=== PATIENT | male | born 1960 | race Caucasian/White ===

== ENCOUNTER 2016-12-01 20:06 | Inpatient (IN) | payer BC ==
--- NOTE | 2016-12-01 21:33 | C.PDOC ---
History Of Present Illness 56 year old male who presents to the ER with a complaint of rectal bleeding since yesterday and a headache. Patient was seen at [facility] yesterday where they discharged him home with instructions to follow up with his PMD. Patient saw his PMD Dr. Mendoza, who sent him to the ER for admission. Patient had a colonoscopy done 5 years ago with removal of 2 polyps. Patient denies fever, chills, or vomiting. Chief Complaint (Nursing): Abdominal Pain History Per: Patient History/Exam Limitations: no limitations Onset/Duration Of Symptoms: Days Current Symptoms Are (Timing): Still Present Radiation Of Pain To:: None Quality Of Discomfort: Unable To Describe Associated Symptoms: Other (Headache, Rectal bleed). denies: Fever, Chills, Vomiting Exacerbating Factors: None Alleviating Factors: None Recent travel outside of the [place]: No Past Medical History Reviewed: Historical Data, Nursing Documentation, Vital Signs Vital Signs: Last Vital Signs Temp 98.3 F 12/01/16 23:45 Pulse 61 12/01/16 23:45 Resp 18 12/01/16 23:45 BP 132/73 12/01/16 23:45 Pulse Ox 99 12/01/16 23:45 - Medical History PMH: Atrial Fibrillation, Colonic Polyps Surgical History: No Surg Hx Family History: States: Unknown Family Hx - Social History Hx Alcohol Use: No Hx Substance Use: No - Immunization History Hx Tetanus Toxoid Vaccination: No Hx Influenza Vaccination: No Hx Pneumococcal Vaccination: No Review Of Systems Constitutional: Negative for: Fever, Chills Gastrointestinal: Positive for: Other (Rectal bleeding). Negative for: Vomiting Neurological: Positive for: Headache Physical Exam - Physical Exam Appears: Non-toxic, No Acute Distress Skin: Normal Color, Warm, Dry Head: Atraumatic, Normacephalic Oral Mucosa: Moist Chest: Symmetrical Cardiovascular: Rhythm Regular Respiratory: Normal Breath Sounds, No Rales, No Rhonchi, No Wheezing Gastrointestinal/Abdominal: Soft, No Tenderness Neurological/Psych: Oriented x3, Normal Speech, Normal Cognition, Normal Motor, Normal Sensation ED Course And Treatment - Laboratory Results Result Diagrams: 12/01/16 21:44 12/01/16 21:44 O2 Sat by Pulse Oximetry: 99 (Room air) Pulse Ox Interpretation: Normal Progress Note: Blood work and urinalysis ordered. Disposition - Disposition Disposition Time: 22:30 Condition: GOOD - Clinical Impression Clinical Impression: Rectal bleeding - Scribe Statement The provider has reviewed the documentation as recorded by the Scribe Osmar Green All medical record entries made by the Elizabethibe were at my direction and personally dictated by me. I have reviewed the chart and agree that the record accurately reflects my personal performance of the history, physical exam, medical decision making, and the department course for this patient. I have also personally directed, reviewed, and agree with the discharge instructions and disposition.
[2016-12-01 21:48] LABS: BASO % 0.4 % (0.0-2.0); EOS # 0.2 K/uL (0.0-0.7); EOS % 1.9 % (0.0-4.0); HEMATOCRIT 45.9 % (35.0-51.0); LYMPH # 3.5 K/uL (1.0-4.3); LYMPH % 30.8 % (20.0-40.0); MEAN CELL VOLUME 91.4 fL (80.0-94.0); MEAN CORPUSCULAR HEMOGLOBIN 31.3 pg (27.0-31.0); MEAN CORPUSCULAR HGB CONC 34.3 g/dL (33.0-37.0); MEAN PLATELET VOLUME 8.6 fL (7.2-11.7); MONO # 0.9 K/uL (0.0-0.8); MONO % 7.7 % (0.0-10.0); RED CELL DISTRIBUTION WIDTH 13.2 % (11.5-14.5); WHITE BLOOD COUNT 11.3 K/uL (4.8-10.8)
[2016-12-01 21:57] LABS: CHLORIDE 96 mmol/L (98-107); POTASSIUM 3.2 mmol/L (3.6-5.2); SODIUM 136 mmol/L (132-148)
[2016-12-01 22:00] LABS: ALB/GLOB RATIO 1.2 (1.0-2.1); ALKALINE PHOSPHATASE 69 U/L (38-126); ALT/SGPT 48 U/L (21-72); AST/SGOT 26 U/L (17-59); BILIRUBIN,TOTAL 0.9 mg/dL (0.2-1.3); BLOOD UREA NITROGEN 12 mg/dL (9-20); CALCIUM 9.5 mg/dl (8.6-10.4); CARBON DIOXIDE 29 mmol/L (22-30); GFR AFRICAN-AMERICAN > 60; GLUCOSE,RANDOM 89 mg/dL (75-110); RBC URINE 1 /hpf (0-3); TOTAL PROTEIN 8.3 g/dL (6.3-8.3); URINE BILIRUBIN NEGATIVE (NEGATIVE); URINE BLOOD NEGATIVE (NEGATIVE); URINE COLOR Yellow (YELLOW); URINE GLUCOSE (UA) NORMAL (Normal); URINE KETONE NEGATIVE (NEGATIVE); URINE LEUKOCYTE ESTERASE NEG Leu/uL (Negative); URINE PROTEIN NEGATIVE (NEGATIVE); URINE UROBILINOGEN NORMAL mg/dL (0.2-1.0); WBC URINE < 1 /hpf (0-5)
[2016-12-01 22:04] LABS: INR 1.1
--- NOTE | 2016-12-01 22:25 | CT ---
EXAM: CT Head Without Intravenous Contrast CLINICAL HISTORY: 56 years old, male; Condition or disease; Headache; Tension; Additional info: R/O ich TECHNIQUE: Axial computed tomography images of the head/brain without intravenous contrast. All CT scans at this facility use one or more dose reduction techniques, viz.: automated exposure control; ma/kV adjustment per patient size (including targeted exams where dose is matched to indication; i.e. head); or iterative reconstruction technique. COMPARISON: No relevant prior studies available. FINDINGS: Brain: No acute intracranial hemorrhage. No significant white matter disease. No edema. Ventricles: No significant ventriculomegaly. Bones: No acute displaced fracture. Sinuses: Unremarkable as visualized. No acute sinusitis. Mastoid air cells: Unremarkable as visualized. No mastoid effusion. IMPRESSION: No acute intracranial hemorrhage, or suspicious mass effect.
[2016-12-02] MEDS ORDERED: Potassium Chloride 20 mEq ER Tab PO STA (00:20)
[2016-12-02] MEDS ORDERED: Potassium Chloride 20 mEq ER Tab PO ONE (00:23)
[2016-12-02 00:47] VITALS: RESP 20
[2016-12-02 08:08] LABS: BASO % 0.6 % (0.0-2.0); EOS # 0.2 K/uL (0.0-0.7); EOS % 2.5 % (0.0-4.0); LYMPH # 2.1 K/uL (1.0-4.3); LYMPH % 29.1 % (20.0-40.0); MEAN CELL VOLUME 90.6 fL (80.0-94.0); MEAN CORPUSCULAR HEMOGLOBIN 31.4 pg (27.0-31.0); MEAN CORPUSCULAR HGB CONC 34.6 g/dL (33.0-37.0); MEAN PLATELET VOLUME 8.4 fL (7.2-11.7); MONO # 0.6 K/uL (0.0-0.8); MONO % 7.8 % (0.0-10.0); RED CELL DISTRIBUTION WIDTH 12.7 % (11.5-14.5); WHITE BLOOD COUNT 7.3 K/uL (4.8-10.8)
[2016-12-02 08:16] LABS: CHLORIDE 102 mmol/L (98-107); INR 1.1
[2016-12-02 08:17] LABS: POTASSIUM 3.9 mmol/L (3.6-5.2); SODIUM 135 mmol/L (132-148)
[2016-12-02 08:19] LABS: GFR AFRICAN-AMERICAN > 60
[2016-12-02 08:20] LABS: ALB/GLOB RATIO 1.2 (1.0-2.1); ALKALINE PHOSPHATASE 64 U/L (38-126); ALT/SGPT 47 U/L (21-72); AST/SGOT 27 U/L (17-59); BLOOD UREA NITROGEN 12 mg/dL (9-20); CALCIUM 8.9 mg/dl (8.6-10.4); CARBON DIOXIDE 25 mmol/L (22-30); GLUCOSE,RANDOM 98 mg/dL (75-110); TOTAL PROTEIN 7.4 g/dL (6.3-8.3)
--- NOTE | 2016-12-02 10:56 | CT ---
PROCEDURE: CT Abdomen and Pelvis without intravenous contrast HISTORY: R/O DIVERTICULITIS COMPARISON: None. TECHNIQUE: Helical CT of the abdomen and pelvis was performed without oral or intravenous contrast as per referring physician request . Contrast Dose: None Radiation dose: Total exam DLP = 714.93 mGy-cm. This CT exam was performed using one or more of the following dose reduction techniques: Automated exposure control, adjustment of the mA and/or kV according to patient size, and/or use of iterative reconstruction technique. FINDINGS: LOWER THORAX: Unremarkable. LIVER: Hepatic steatosis is appreciate without discrete mass or gross intrahepatic biliary dilatation the lack images contrast limits evaluation of the solid abdominal viscera significantly. GALLBLADDER AND BILE DUCTS: Unremarkable. PANCREAS: Unremarkable. No gross lesion or ductal dilatation. SPLEEN: Unremarkable. ADRENALS: Unremarkable. No mass. KIDNEYS AND URETERS: Punctate intrarenal calcified at the midpole right kidney and also a solitary similar focus at the lower pole left kidney. Both kidneys otherwise are remarkable for for trace perinephric streaky changes of uncertain origin. No obstructive uropathy bilaterally. VASCULATURE: Unremarkable. No aortic aneurysm. BOWEL: No bowel obstruction measure edema or ascites identified. Moderate fecal loading is seen throughout the proximal half of the colon with the distal half collapse. Moderate sigmoid diverticulosis is identified without overt diverticulitis pattern by standard CT criteria. Lack of contrast agents limits evaluation the bowel. Small bowel appears unremarkable. APPENDIX: Unremarkable. Normal appendix. PERITONEUM: Unremarkable. No free fluid. No free air. LYMPH NODES: Unremarkable. No enlarged lymph nodes. BLADDER: Prostate gland is enlarged. REPRODUCTIVE: Unremarkable. BONES: No acute fracture. OTHER FINDINGS: None. IMPRESSION: The lack of contrast agents limits evaluation but in including evaluating the small bowel. Sigmoid diverticulosis is appreciated moderately. No definite diverticulitis identified at this time. No bowel obstruction or mesenteric edema. No definite abscess formation. Fatty liver identified. Enlarged prostate gland noted. Minimal nonobstructing intrarenal calculi identified bilaterally.
--- NOTE | 2016-12-02 17:47 | CP.PCM.CON ---
History of Present Illness - History of Present Illness History of Present Illness: This is a 56 year old man with rectal bleeding. Patient was evaluated by Dr. Paz in 2011: EGD showed esophagitis, hiatal hernia and non-erosive gastritis. Colonoscopy showed diverticulosis and hyperplastic polyps. Patient was in his usual state of health until Thursday, when he ate ribs and later developed diffuse, severe abdominal cramping, followed by diarrhea. The diarrhea was watery and yellow, and was accompanied by a strong urge to strain. Subsequently, he had at least ten more movements which were bloody. He was admitted for observation to [facility] and discharged. He had four or five bloody stools yesterday and consulted Dr Mendoza, who referred him to the ER at [facility]. He denies having nausea, vomiting, sweating, heartburn, difficulty swallowing. He denies having loss of appetite or loss of weight before this episode. The HGB on admission was 15.7 and 15.2 when repeated. He has not had any bowel movements or bleeding today. Review of Systems - Constitutional Constitutional: absent: Anorexia, Chills, Fever, Weight Loss - Gastrointestinal Gastrointestinal: Abdominal Pain, Diarrhea, Hematochezia. absent: Constipation , Dysphagia, Heartburn, Nausea, Vomiting Past Patient History - Past Medical History & Family History Past Medical History?: Yes - Past Social History Smoking Status: Never Smoked - CARDIAC Hx Atrial Fibrillation: Yes - PULMONARY Hx Respiratory Disorders: No - NEUROLOGICAL Hx Neurological Disorder: No - HEENT Hx HEENT Problems: No - RENAL Hx Chronic Kidney Disease: No - ENDOCRINE/METABOLIC Hx Diabetes Mellitus Type 2: Yes - HEMATOLOGICAL/ONCOLOGICAL Hx Blood Disorders: No - INTEGUMENTARY Hx Dermatological Problems: No - MUSCULOSKELETAL/RHEUMATOLOGICAL Hx Musculoskeletal Disorders: No Hx Falls: No - GASTROINTESTINAL Hx Gastrointestinal Disorders: Yes Other/Comment: colonoscopy:colonic polyps - GENITOURINARY/GYNECOLOGICAL Hx Genitourinary Disorders: No - PSYCHIATRIC Hx Substance Use: No - SURGICAL HISTORY Hx Surgeries: No - ANESTHESIA Hx Anesthesia: Yes Hx Anesthesia Reactions: No Hx Malignant Hyperthermia: No Has any member of the family had a problem w/ anesthesia?: No Meds Allergies/Adverse Reactions: Allergies Allergy/AdvReac Type Severity Reaction Status Date / Time oxycodone [From Percocet] Allergy Mild Verified 12/01/16 20:43 - Medications Medications: Current Medications Pneumococcal Polyvalent Vaccine (Pneumovax 23 Vaccine) 0.5 ml IM .ONCE ONE Stop: 12/05/16 10:01 Physical Exam - Constitutional Appears: No Acute Distress - Head Exam Head Exam: NORMAL INSPECTION - Eye Exam Eye Exam: EOMI Pupil Exam: PERRL - Neck Exam Neck exam: Negative for: Lymphadenopathy, Thyromegaly - Respiratory Exam Respiratory Exam: NORMAL BREATHING PATTERN. absent: Rales, Rhonchi, Wheezes - Cardiovascular Exam Cardiovascular Exam: REGULAR RHYTHM, +S1, +S2. absent: Gallop, Rubs, Systolic Murmur - GI/Abdominal Exam GI & Abdominal Exam: Normal Bowel Sounds, Soft. absent: Mass, Organomegaly, Tenderness - Rectal Exam Rectal Exam: Deferred - Extremities Exam Extremities exam: Negative for: calf tenderness, pedal edema Results - Vital Signs Recent Vital Signs: Last Vital Signs Temp 97.6 F 12/02/16 15:46 Pulse 63 12/02/16 15:46 Resp 20 12/02/16 15:46 BP 132/84 12/02/16 15:46 Pulse Ox 97 12/02/16 15:46 - Labs Result Diagrams: 12/02/16 08:00 12/02/16 08:00 Labs: Laboratory Results - last 24 hr 12/01/16 12/01/16 12/01/16 21:44 21:44 21:44 WBC 11.3 H RBC 5.02 Hgb 15.7 Hct 45.9 MCV 91.4 MCH 31.3 H MCHC 34.3 RDW 13.2 Plt Count 240 MPV 8.6 Neut % (Auto) 59.2 Lymph % (Auto) 30.8 Bates % (Auto) 7.7 Eos % (Auto) 1.9 Baso % (Auto) 0.4 Neut # 6.7 Lymph # 3.5 Bates # 0.9 H Eos # 0.2 Baso # 0.0 PT INR APTT Sodium 136 Potassium 3.2 L Chloride 96 L Carbon Dioxide 29 Anion Gap 14 BUN 12 Creatinine 0.9 Est GFR ( Amer) > 60 Est GFR (Non-Af Amer) > 60 Random Glucose 89 Calcium 9.5 Total Bilirubin 0.9 AST 26 ALT 48 Alkaline Phosphatase 69 Total Protein 8.3 Albumin 4.6 Globulin 3.8 Albumin/Globulin Ratio 1.2 Lipase 58 Urine Color Yellow Urine Clarity Clear Urine pH 7.0 Ur Specific [place] 1.012 Urine Protein Negative Urine Glucose (UA) Normal Urine Ketones Negative Urine Blood Negative Urine Nitrate Negative Urine Bilirubin Negative Urine Urobilinogen Normal Ur Leukocyte Esterase Neg Urine WBC (Auto) < 1 Urine RBC (Auto) 1 Ur Squamous Epith Cells < 1 Blood Type Antibody Screen 12/01/16 12/01/16 12/02/16 21:44 21:50 08:00 WBC 7.3 RBC 4.85 Hgb 15.2 Hct 44.0 MCV 90.6 MCH 31.4 H MCHC 34.6 RDW 12.7 Plt Count 208 MPV 8.4 Neut % (Auto) 60.0 Lymph % (Auto) 29.1 [place] % (Auto) 7.8 Eos % (Auto) 2.5 Baso % (Auto) 0.6 Neut # 4.4 Lymph # 2.1 Bates # 0.6 Eos # 0.2 Baso # 0.0 PT 12.5 H INR 1.1 APTT 31 Sodium Potassium Chloride Carbon Dioxide Anion Gap BUN Creatinine Est GFR ( Amer) Est GFR (Non-Af Amer) Random Glucose Calcium Total Bilirubin AST ALT Alkaline Phosphatase Total Protein Albumin Globulin Albumin/Globulin Ratio Lipase Urine Color Urine Clarity Urine pH Ur Specific [place] Urine Protein Urine Glucose (UA) Urine Ketones Urine Blood Urine Nitrate Urine Bilirubin Urine Urobilinogen Ur Leukocyte Esterase Urine WBC (Auto) Urine RBC (Auto) Ur Squamous Epith Cells Blood Type O POSITIVE Antibody Screen Negative 12/02/16 12/02/16 08:00 08:00 WBC RBC Hgb Hct MCV MCH MCHC RDW Plt Count MPV Neut % (Auto) Lymph % (Auto) [place] % (Auto) Eos % (Auto) Baso % (Auto) Neut # Lymph # Bates # Eos # Baso # PT 12.3 H INR 1.1 APTT 31 Sodium 135 Potassium 3.9 Chloride 102 Carbon Dioxide 25 Anion Gap 13 BUN 12 Creatinine 0.9 Est GFR ( Amer) > 60 Est GFR (Non-Af Amer) > 60 Random Glucose 98 Calcium 8.9 Total Bilirubin 1.0 AST 27 ALT 47 Alkaline Phosphatase 64 Total Protein 7.4 Albumin 4.0 Globulin 3.4 Albumin/Globulin Ratio 1.2 Lipase Urine Color Urine Clarity Urine pH Ur Specific [place] Urine Protein Urine Glucose (UA) Urine Ketones Urine Blood Urine Nitrate Urine Bilirubin Urine Urobilinogen Ur Leukocyte Esterase Urine WBC (Auto) Urine RBC (Auto) Ur Squamous Epith Cells Blood Type Antibody Screen Assessment & Plan (1) Rectal bleeding Assessment and Plan: Patient had multiple episodes of rectal bleeding following two watery stools. The diagnostic possibilities include hemorrhagic colitis, such as Shigellosis or E coli, or ischemic colitis precipitated by diarrhea and straining. The HGB has been normal on two determinations. Recommend stool cultures and colonoscopy, which can be done as an outpatient in the absence of ongoing bleeding. Status: Acute
--- NOTE | 2016-12-02 22:32 | CP.PCM.HP ---
History of Present Illness - History of Present Illness History of Present Illness: CC rectal bleeding HPI 56 y/o hisp male admitted to recurrent rectal bleeding x 2 days. Present on Admission - Present on Admission Any Indicators Present on Admission: Yes History of DVT/PE: No History of Uncontrolled Diabetes: Yes Urinary Catheter: No Decubitus Ulcer Present: No Review of Systems - EENT Nose/Mouth/Throat: absent: Epistaxis - Cardiovascular Cardiovascular: absent: Chest Pain - Respiratory Respiratory: absent: Hemoptysis - Gastrointestinal Gastrointestinal: Cramping, Diarrhea, Loose Stools Additional comments: rectal bleeding Past Patient History - Past Medical History & Family History Past Medical History?: Yes - Past Social History Smoking Status: Never Smoked - CARDIAC Hx Atrial Fibrillation: Yes - PULMONARY Hx Respiratory Disorders: No - NEUROLOGICAL Hx Neurological Disorder: No - HEENT Hx HEENT Problems: No - RENAL Hx Chronic Kidney Disease: No - ENDOCRINE/METABOLIC Hx Diabetes Mellitus Type 2: Yes - HEMATOLOGICAL/ONCOLOGICAL Hx Blood Disorders: No - INTEGUMENTARY Hx Dermatological Problems: No - MUSCULOSKELETAL/RHEUMATOLOGICAL Hx Musculoskeletal Disorders: No Hx Falls: No - GASTROINTESTINAL Hx Gastrointestinal Disorders: Yes Other/Comment: colonoscopy:colonic polyps - GENITOURINARY/GYNECOLOGICAL Hx Genitourinary Disorders: No - PSYCHIATRIC Hx Substance Use: No - SURGICAL HISTORY Hx Surgeries: No - ANESTHESIA Hx Anesthesia: Yes Hx Anesthesia Reactions: No Hx Malignant Hyperthermia: No Has any member of the family had a problem w/ anesthesia?: No Meds Allergies/Adverse Reactions: Allergies Allergy/AdvReac Type Severity Reaction Status Date / Time oxycodone [From Percocet] Allergy Mild Verified 12/01/16 20:43 Physical Exam - Constitutional Appears: Non-toxic - Head Exam Head Exam: NORMAL INSPECTION - Eye Exam Eye Exam: absent: Scleral icterus - ENT Exam ENT Exam: Mucous Membranes Moist - Neck Exam Neck exam: Positive for: Full Rom - Respiratory Exam Respiratory Exam: Rales, NORMAL BREATHING PATTERN - Cardiovascular Exam Cardiovascular Exam: REGULAR RHYTHM - GI/Abdominal Exam GI & Abdominal Exam: Soft. absent: Tenderness - Extremities Exam Extremities exam: Positive for: calf tenderness. Negative for: pedal edema Results - Vital Signs Recent Vital Signs: Last Vital Signs Temp 97.6 F 12/02/16 15:46 Pulse 63 12/02/16 15:46 Resp 20 12/02/16 15:46 BP 132/84 12/02/16 15:46 Pulse Ox 97 10/17/17 15:46 - Labs Result Diagrams: 12/02/16 08:00 12/02/16 08:00 Labs: Laboratory Results - last 24 hr 12/01/16 12/01/16 12/02/16 21:44 21:50 08:00 WBC 7.3 RBC 4.85 Hgb 15.2 Hct 44.0 MCV 90.6 MCH 31.4 H MCHC 34.6 RDW 12.7 Plt Count 208 MPV 8.4 Neut % (Auto) 60.0 Lymph % (Auto) 29.1 Lewis % (Auto) 7.8 Eos % (Auto) 2.5 Baso % (Auto) 0.6 Neut # 4.4 Lymph # 2.1 Lewis # 0.6 Eos # 0.2 Baso # 0.0 PT 12.5 H INR 1.1 APTT 31 Sodium Potassium Chloride Carbon Dioxide Anion Gap BUN Creatinine Est GFR ( Amer) Est GFR (Non-Af Amer) Random Glucose Calcium Total Bilirubin AST ALT Alkaline Phosphatase Total Protein Albumin Globulin Albumin/Globulin Ratio Antibody Screen Negative 12/02/16 12/02/16 08:00 08:00 WBC RBC Hgb Hct MCV MCH MCHC RDW Plt Count MPV Neut % (Auto) Lymph % (Auto) Lewis % (Auto) Eos % (Auto) Baso % (Auto) Neut # Lymph # Lewis # Eos # Baso # PT 12.3 H INR 1.1 APTT 31 Sodium 135 Potassium 3.9 Chloride 102 Carbon Dioxide 25 Anion Gap 13 BUN 12 Creatinine 0.9 Est GFR ( Amer) > 60 Est GFR (Non-Af Amer) > 60 Random Glucose 98 Calcium 8.9 Total Bilirubin 1.0 AST 27 ALT 47 Alkaline Phosphatase 64 Total Protein 7.4 Albumin 4.0 Globulin 3.4 Albumin/Globulin Ratio 1.2 Antibody Screen Assessment & Plan - Assessment and Plan (Free Text) Assessment: Rectal bleeding? etiology DDX: Colitis Ischemic v infectious Paroxysmal atrial fibrillation - Xarelto and ASA on hold HTN T2dm Lipid disorder Plan: GI consult w/ Dr Hoff Monitor H/H Anti-platelet/AC - on hold Colonoscopy CT scan of abdomen and Pelvis Manage T2dm
[2016-12-03 07:56] VITALS: O2SAT 97
[2016-12-03 09:03] LABS: BASO % 0.4 % (0.0-2.0); EOS # 0.3 K/uL (0.0-0.7); EOS % 2.9 % (0.0-4.0); LYMPH # 2.7 K/uL (1.0-4.3); LYMPH % 29.5 % (20.0-40.0); MEAN CORPUSCULAR HEMOGLOBIN 31.3 pg (27.0-31.0); MEAN CORPUSCULAR HGB CONC 34.4 g/dL (33.0-37.0); MEAN PLATELET VOLUME 8.5 fL (7.2-11.7); MONO # 0.6 K/uL (0.0-0.8); MONO % 6.1 % (0.0-10.0); NRBC % 0.1 % (0.0-2.0); RED CELL DISTRIBUTION WIDTH 13.2 % (11.5-14.5)
[2016-12-03 09:08] LABS: CHLORIDE 100 mmol/L (98-107); SODIUM 136 mmol/L (132-148)
[2016-12-03 09:09] LABS: POTASSIUM 3.8 mmol/L (3.6-5.2)
[2016-12-03 09:11] LABS: ALB/GLOB RATIO 1.3 (1.0-2.1); ALKALINE PHOSPHATASE 68 U/L (38-126); AST/SGOT 28 U/L (17-59); BILIRUBIN,TOTAL 0.9 mg/dL (0.2-1.3); BLOOD UREA NITROGEN 13 mg/dL (9-20); CARBON DIOXIDE 25 mmol/L (22-30); GFR AFRICAN-AMERICAN > 60; TOTAL PROTEIN 7.6 g/dL (6.3-8.3)
[2016-12-03 09:12] LABS: ALT/SGPT 52 U/L (21-72); CALCIUM 9.1 mg/dl (8.6-10.4); GLUCOSE,RANDOM 92 mg/dL (75-110)
[2016-12-03 16:32] VITALS: BP 121/83; PULSE 70; TEMP 98.2
--- NOTE | 2016-12-03 17:32 | CP.PCM.PN ---
Subjective - Date & Time of Evaluation Date of Evaluation: 12/03/16 Time of Evaluation: 11:00 - Subjective Subjective: Alert, awake, denies abdominal pain or distress. Objective - Vital Signs/Intake and Output Vital Signs (last 24 hours): Temp Pulse Resp BP Pulse Ox 98.2 F 70 20 121/83 97 12/03/16 16:00 12/03/16 16:00 12/03/16 16:00 12/03/16 16:00 12/03/16 16:00 Intake and Output: 12/03/16 12/03/16 06:59 18:59 Intake Total 150 Balance 150 - Medications Medications: Current Medications Pneumococcal Polyvalent Vaccine (Pneumovax 23 Vaccine) 0.5 ml IM .ONCE ONE Stop: 12/05/16 10:01 - Labs Labs: 12/03/16 08:36 12/03/16 08:36 PT 12.3 SECONDS (9.7-12.2) H 12/02/16 08:00 INR 1.1 12/02/16 08:00 APTT 31 SECONDS (21-34) 12/02/16 08:00 Assessment and Plan - Assessment and Plan (Free Text) Assessment: Patient admitted with rectal bleeding, seen and examined. Alert and orientedx3, no diarrhea or rectal bleeding now. The hemoglobin is stable at 15. D/W DR Boyd and DR Mendoza, plan to discharge home today. Advised to call DR Boyd office in am and get directions for outpatient colonoscopy on Thursday which will be scheduled by DR Boyd. Advised to hold the xeralta and aspirin until after the procedure and follow up with DR Mendoza in 1 week. Patient verbalized understanding.
--- NOTE | 2016-12-03 22:19 | CP.PCM.PN ---
Subjective - Date & Time of Evaluation Date of Evaluation: 12/03/16 Time of Evaluation: 08:00 - Subjective Subjective: no rectal bleeding no BM all night Objective - Vital Signs/Intake and Output Vital Signs (last 24 hours): Temp Pulse Resp BP Pulse Ox 98.2 F 70 20 121/83 97 12/03/16 16:00 12/03/16 16:00 12/03/16 16:00 12/03/16 16:00 12/03/16 16:00 - Labs Labs: 12/03/16 08:36 12/03/16 08:36 PT 12.3 SECONDS (9.7-12.2) H 12/02/16 08:00 INR 1.1 12/02/16 08:00 APTT 31 SECONDS (21-34) 12/02/16 08:00 - Constitutional Appears: Non-toxic - Head Exam Head Exam: absent: NORMAL INSPECTION - Eye Exam Eye Exam: absent: Scleral icterus - ENT Exam ENT Exam: Mucous Membranes Moist - Neck Exam Neck Exam: Full ROM - Respiratory Exam Respiratory Exam: Clear to Ausculation Bilateral - Cardiovascular Exam Cardiovascular Exam: REGULAR RHYTHM - GI/Abdominal Exam GI & Abdominal Exam: Normal Bowel Sounds - Extremities Exam Extremities Exam: Full ROM. absent: Calf Tenderness, Pedal Edema Assessment and Plan - Assessment and Plan (Free Text) Assessment: Rectal bleeding T2dm HTN Paroxysmal afib Plan: Anticoagulation on hold w/u in progress needs colonoscopy
--- NOTE | 2016-12-03 22:30 | CP.PCM.DIS ---
Provider - Provider Date of Admission: 12/01/16 22:44 Attending physician: Erik Mendoza MD Primary care physician: Dr Erik Mendoza Consults: Dr Hoff Time Spent in preparation of Discharge (in minutes): 30 Diagnosis - Discharge Diagnosis (1) T2DM (type 2 diabetes mellitus) Status: Chronic (2) Paroxysmal atrial fibrillation Status: Chronic Hospital Course - Lab Results Lab Results: Micro Results 12/01/16 21:45 Urine Urine Culture - Final No Growth (<1,000 CFU/ML) Most Recent Lab Values WBC 9.0 K/uL (4.8-10.8) 12/03/16 08:36 RBC 5.06 Mil/uL (4.40-5.90) 12/03/16 08:36 Hgb 15.8 g/dL (12.0-18.0) 12/03/16 08:36 Hct 46.0 % (35.0-51.0) 12/03/16 08:36 MCV 91.0 fL (80.0-94.0) 12/03/16 08:36 MCH 31.3 pg (27.0-31.0) H 12/03/16 08:36 MCHC 34.4 g/dL (33.0-37.0) 12/03/16 08:36 RDW 13.2 % (11.5-14.5) 12/03/16 08:36 Plt Count 216 K/uL (130-400) 12/03/16 08:36 MPV 8.5 fL (7.2-11.7) 12/03/16 08:36 Neut % (Auto) 61.1 % (50.0-75.0) 12/03/16 08:36 Lymph % (Auto) 29.5 % (20.0-40.0) 12/03/16 08:36 [place] % (Auto) 6.1 % (0.0-10.0) 12/03/16 08:36 Eos % (Auto) 2.9 % (0.0-4.0) 12/03/16 08:36 Baso % (Auto) 0.4 % (0.0-2.0) 12/03/16 08:36 Neut # 5.5 K/uL (1.8-7.0) 12/03/16 08:36 Lymph # 2.7 K/uL (1.0-4.3) 12/03/16 08:36 [place] # 0.6 K/uL (0.0-0.8) 12/03/16 08:36 Eos # 0.3 K/uL (0.0-0.7) 12/03/16 08:36 Baso # 0.0 K/uL (0.0-0.2) 12/03/16 08:36 PT 12.3 SECONDS (9.7-12.2) H 12/02/16 08:00 INR 1.1 12/02/16 08:00 APTT 31 SECONDS (21-34) 12/02/16 08:00 Sodium 136 mmol/L (132-148) 12/03/16 08:36 Potassium 3.8 mmol/L (3.6-5.2) 12/03/16 08:36 Chloride 100 mmol/L (98-107) 12/03/16 08:36 Carbon Dioxide 25 mmol/L (22-30) 12/03/16 08:36 Anion Gap 14 (10-20) 12/03/16 08:36 BUN 13 mg/dL (9-20) 12/03/16 08:36 Creatinine 0.9 mg/dL (0.8-1.5) 12/03/16 08:36 Est GFR ( Amer) > 60 12/03/16 08:36 Est GFR (Non-Af Amer) > 60 12/03/16 08:36 Random Glucose 92 mg/dL (75-110) 12/03/16 08:36 Calcium 9.1 mg/dl (8.6-10.4) 12/03/16 08:36 Total Bilirubin 0.9 mg/dL (0.2-1.3) 12/03/16 08:36 AST 28 U/L (17-59) 12/03/16 08:36 ALT 52 U/L (21-72) 12/03/16 08:36 Alkaline Phosphatase 68 U/L (38-126) 12/03/16 08:36 Total Protein 7.6 g/dL (6.3-8.3) 12/03/16 08:36 Albumin 4.2 g/dL (3.5-5.0) 12/03/16 08:36 Globulin 3.4 gm/dL (2.2-3.9) 12/03/16 08:36 Albumin/Globulin Ratio 1.3 (1.0-2.1) 12/03/16 08:36 Lipase 58 U/L (23-300) 12/01/16 21:44 Urine Color Yellow (YELLOW) 12/01/16 21:44 Urine Clarity Clear (Clear) 12/01/16 21:44 Urine pH 7.0 (5.0-8.0) 12/01/16 21:44 Ur Specific [place] 1.012 (1.003-1.030) 12/01/16 21:44 Urine Protein Negative mg/dL (NEGATIVE) 12/01/16 21:44 Urine Glucose (UA) Normal mg/dL (Normal) 12/01/16 21:44 Urine Ketones Negative mg/dL (NEGATIVE) 12/01/16 21:44 Urine Blood Negative (NEGATIVE) 12/01/16 21:44 Urine Nitrate Negative (NEGATIVE) 12/01/16 21:44 Urine Bilirubin Negative (NEGATIVE) 12/01/16 21:44 Urine Urobilinogen Normal mg/dL (0.2-1.0) 12/01/16 21:44 Ur Leukocyte Esterase Neg [place]/uL (Negative) 12/01/16 21:44 Urine WBC (Auto) < 1 /hpf (0-5) 12/01/16 21:44 Urine RBC (Auto) 1 /hpf (0-3) 12/01/16 21:44 Ur Squamous Epith Cells < 1 /hpf (0-5) 12/01/16 21:44 Stool Leukocytes, Qual Negative (NEGATIVE) 12/02/16 16:26 C. difficile Ag & Toxin Negative (NEGATIVE) 12/02/16 16:26 Blood Type O POSITIVE 12/01/16 21:44 Antibody Screen Negative 12/01/16 21:44 - Hospital Course Hospital Course: Pt hospital course was uneventful. Pt was seen by Dr Hoff and GI w/u was done.Hgb was stable at 15.2 Pt was discharged and colonoscopy was scheduled for Thursday, Dec 05, 2016. Discharge Exam - Head Exam Head Exam: absent: NORMAL INSPECTION - Eye Exam Eye Exam: absent: Scleral icterus - ENT Exam ENT Exam: Mucous Membranes Dry - Neck Exam Neck exam: Full Rom - Respiratory Exam Respiratory Exam: Decreased Breath Sounds, UNREMARKABLE - Cardiovascular Exam Cardiovascular Exam: REGULAR RHYTHM - GI/Abdominal Exam GI & Abdominal Exam: Soft. absent: Tenderness Discharge Plan - Follow Up Plan Condition: GOOD Disposition: HOME/ ROUTINE Instructions: Gastrointestinal Bleeding (DC), Rectal Bleeding (DC) Additional Instructions: continue clear liquid diet please call DR Boyd office in the morning to get prep instructions for colonoscopy on Thursday as outpatient continue hold xarelto and aspirin follow up with DR Mendoza in 1 week Referrals: Erik Mendoza MD [Staff Provider] - Aric Boyd MD [Staff Provider] -
[2016-12-05] MEDS ORDERED: Pneumococcal 23-Valent Vaccine IM ONE (10:00)
[2016-12-08] MEDS ORDERED: Influenza Vaccine 60 mcg/0.5 mL SYR (4YR UP) IM ONE (10:00)
== END 2016-12-03 17:53 | disposition home or self-care (01) | DRG 379 ==
LOC: C.ER 20:06 → C.9E 22:44 → C.3T 23:38
PROVIDERS: ADMIT Internal Medicine; ATTEND Internal Medicine
DX: K62.5 Hemorrhage of anus and rectum (principal); E11.9 Type 2 diabetes mellitus without complications; I48.0 Paroxysmal atrial fibrillation; I10 Essential (primary) hypertension; Z86.010 Personal history of colon polyps